=== PATIENT | male | born 1955 | race Caucasian/White ===

== ENCOUNTER 2016-09-01 01:13 | Inpatient (IN) | payer MEDICARE, OTHER ==
[~2016-09-01] VITALS: Ht 185.4 cm; Wt 79.8 kg
[2016-09-01 01:00] VITALS: BP 143/78
[~2016-09-01 01:13] MED LIST: ACET-868 PO; ALLA266C2 TP; AMLO10TA4 PO; BLOO-697 IN; GEMF600T3 PO; HYDR-3326 PO; INSU100V3 SQ; LAMO25TA5 PO; MAG30ORA PO; MAGN400O6 PO; SENN8.6T60 PO
[2016-09-01] MEDS ORDERED: ACETAMINOPHEN 325 MG TABLET PO PRN (01:30)
[2016-09-01] MEDS ORDERED: ZOLPIDEM TARTRATE 5 MG TABLET PO PRN (01:30)
[2016-09-01] MEDS ORDERED: MAGNESIUM HYDROXIDE 30 ML UDC PO PRN (01:30)
[2016-09-01] MEDS ORDERED: MAG HYDROX/AL HYDROX/SIMETH 30 ML UDC PO PRN (01:30)
[2016-09-01] MEDS ORDERED: LORAZEPAM 0.5 MG TABLET PO PRN (01:30)
[2016-09-01 07:46] LABS: CHOLESTEROL 143 mg/dL (<200); HDL CHOLESTEROL 29 mg/dL (40-60); LDL 76 mg/dL (0-99); TRIGLYCERIDES 272 mg/dL (30-150)
[2016-09-01] MEDS ORDERED: CARB1TAB21 PO (07:51)
[2016-09-01] MEDS ORDERED: LEVO50TA8 PO (07:51)
[2016-09-01] MEDS ORDERED: DIVA500T54 PO (07:51)
[2016-09-01 08:00] VITALS: BP 142/81
[2016-09-01] MEDS ORDERED: NIFE90TA37 PO (08:01)
[2016-09-01 12:41] LABS: ALBUMIN 3.2 g/dL (3.4-5.0); BILIRUBIN,TOTAL 0.2 mg/dL (0.2-1.0); CALCIUM, SERUM 9.4 mg/dL (8.5-10.1); CREATININE 1.3 mg/dL (0.6-1.3); POTASSIUM 3.8 mmol/L (3.5-5.1); TOTAL PROTEIN, SERUM 6.8 g/dL (6.4-8.2)
[2016-09-01 12:43] LABS: BASOPHILS # (AUTO) 0.1 /CMM (0.0-0.2); BASOPHILS % (AUTO) 0.7 % (0.0-2.0); DIFF TOTAL % 100 %; EOSINOPHILS # (AUTO) 0.1 /CMM (0.0-0.7); EOSINOPHILS % (AUTO) 1.2 % (0.0-6.0); HEMATOCRIT 38 % (39-51); HEMOGLOBIN 12.9 g/dL (13.5-17.5); LYMPHOCYTES # (AUTO) 2.1 /CMM (0.8-4.8); LYMPHOCYTES % (AUTO) 27.1 % (20.0-44.0); MEAN CORPUSCULAR HEMOGLOBIN 30 PG (26.0-33.0); MEAN CORPUSCULAR HGB CONC 34 g/dl (31.0-36.0); MEAN CORPUSCULAR VOLUME 87 fL (80-96); MONOCYTES # (AUTO) 0.7 /CMM (0.1-1.30); MONOCYTES % (AUTO) 8.8 % (2.0-12.0); NEUTROPHILS # (AUTO) 4.9 /CMM (1.8-8.9); NEUTROPHILS % (AUTO) 62.2 % (43.0-81.0); PLATELET COUNT (AUTO) 599 /CMM (150-450); RED BLOOD CELL COUNT(AUTO) 4.36 MIL/uL (4.5-6.0); WHITE BLOOD COUNT (AUTO) 7.9 K/uL (4.3-11.0)
[2016-09-01] MEDS: NIFEdipine XL (30MG) 30 MG TAB PO SCH (13:00)
[2016-09-01] MEDS: LEVOTHYROXINE SODIUM 50 MCG TABLET PO SCH (14:57)
[2016-09-01] MEDS: CARBIDOPA/LEVODOPA 25/100 MG 1 UDTAB PO SCH ×2 (14:57→17:23)
[2016-09-01 16:11] VITALS: BP 150/85
[2016-09-01 20:00] VITALS: BP 140/86
[2016-09-01] MEDS: LamoTRIgine 25 MG TABLET PO SCH (20:43)
[2016-09-01] MEDS: BENZTROPINE MESYLATE (1 MG) 1 MG TABLET PO SCH (20:44)
[2016-09-01] MEDS ORDERED: DIVALPROEX SODIUM 500 MG TABLET.DR PO SCH (22:00)
[2016-09-02 06:39] LABS: BASOPHILS % (AUTO) 0.4 % (0.0-2.0); DIFF TOTAL % 100 %; EOSINOPHILS # (AUTO) 0.1 /CMM (0.0-0.7); EOSINOPHILS % (AUTO) 0.8 % (0.0-6.0); HEMATOCRIT 38 % (39-51); HEMOGLOBIN 12.7 g/dL (13.5-17.5); LYMPHOCYTES # (AUTO) 2.3 /CMM (0.8-4.8); LYMPHOCYTES % (AUTO) 27.2 % (20.0-44.0); MEAN CORPUSCULAR HEMOGLOBIN 30 PG (26.0-33.0); MEAN CORPUSCULAR HGB CONC 34 g/dl (31.0-36.0); MEAN CORPUSCULAR VOLUME 89 fL (80-96); MONOCYTES # (AUTO) 0.5 /CMM (0.1-1.30); MONOCYTES % (AUTO) 5.6 % (2.0-12.0); NEUTROPHILS # (AUTO) 5.5 /CMM (1.8-8.9); PLATELET COUNT (AUTO) 611 /CMM (150-450); RED BLOOD CELL COUNT(AUTO) 4.28 MIL/uL (4.5-6.0); WHITE BLOOD COUNT (AUTO) 8.3 K/uL (4.3-11.0)
[2016-09-02 07:49] LABS: ALBUMIN 3.2 g/dL (3.4-5.0); BILIRUBIN,TOTAL 0.4 mg/dL (0.2-1.0); CALCIUM, SERUM 9.3 mg/dL (8.5-10.1); CREATININE 1.2 mg/dL (0.6-1.3); POTASSIUM 3.6 mmol/L (3.5-5.1); TOTAL PROTEIN, SERUM 6.5 g/dL (6.4-8.2)
[2016-09-02 08:05] VITALS: BP 163/92
[2016-09-02] MEDS: risperiDONE 1 MG TABLET PO SCH ×2 (09:00→17:00)
[2016-09-02] MEDS: LEVOTHYROXINE SODIUM 50 MCG TABLET PO SCH (10:26)
[2016-09-02] MEDS: CARBIDOPA/LEVODOPA 25/100 MG 1 UDTAB PO SCH ×3 (10:26→17:00)
[2016-09-02] MEDS: NIFEdipine XL (30MG) 30 MG TAB PO SCH (10:27)
[2016-09-02] MEDS: BENZTROPINE MESYLATE (1 MG) 1 MG TABLET PO SCH ×2 (10:27→17:00)
[2016-09-02] MEDS ORDERED: OLANZAPINE 10 MG VIAL IM ONE (13:00)
[2016-09-02 15:52] VITALS: BP 137/81
[2016-09-02] MEDS: LamoTRIgine 25 MG TABLET PO SCH (17:14)
[2016-09-02 19:52] VITALS: BP 126/76
[2016-09-02] MEDS: DIVALPROEX SODIUM 500 MG TABLET.DR PO SCH (21:00)
[2016-09-03 08:00] VITALS: BP 112/77
[2016-09-03] MEDS: LEVOTHYROXINE SODIUM 50 MCG TABLET PO SCH (09:37)
[2016-09-03] MEDS: risperiDONE 1 MG TABLET PO SCH ×2 (09:38→17:17)
[2016-09-03] MEDS: CARBIDOPA/LEVODOPA 25/100 MG 1 UDTAB PO SCH ×3 (09:38→17:16)
[2016-09-03] MEDS: DIVALPROEX SODIUM 500 MG TABLET.DR PO SCH ×2 (09:38→21:00)
[2016-09-03] MEDS: BENZTROPINE MESYLATE (1 MG) 1 MG TABLET PO SCH ×2 (09:38→17:16)
[2016-09-03] MEDS: NIFEdipine XL (30MG) 30 MG TAB PO SCH (09:39)
[2016-09-03 16:00] VITALS: BP 121/75
[2016-09-03] MEDS: LamoTRIgine 25 MG TABLET PO SCH (17:16)
[2016-09-03 20:00] VITALS: BP 118/60
[2016-09-04] MEDS: LEVOTHYROXINE SODIUM 50 MCG TABLET PO SCH (07:30)
[2016-09-04] MEDS: CARBIDOPA/LEVODOPA 25/100 MG 1 UDTAB PO SCH ×3 (09:00→17:00)
[2016-09-04] MEDS: DIVALPROEX SODIUM 500 MG TABLET.DR PO SCH ×2 (09:00→21:00)
[2016-09-04] MEDS: NIFEdipine XL (30MG) 30 MG TAB PO SCH (09:00)
[2016-09-04] MEDS: BENZTROPINE MESYLATE (1 MG) 1 MG TABLET PO SCH ×2 (09:00→17:00)
[2016-09-04] MEDS: risperiDONE 1 MG TABLET PO SCH ×2 (09:00→17:00)
[2016-09-04] MEDS: FLUOXETINE HCL 20 MG CAPSULE PO SCH (12:17)
[2016-09-04] MEDS ORDERED: LORAZEPAM INJ 2 MG/ML VIAL IM STA (14:22)
[2016-09-04] MEDS ORDERED: OLANZAPINE 10 MG VIAL IM ONE (14:30)
[2016-09-04] MEDS: LamoTRIgine 25 MG TABLET PO SCH (18:00)
[2016-09-05] MEDS: LEVOTHYROXINE SODIUM 50 MCG TABLET PO SCH (07:30)
[2016-09-05 08:00] VITALS: BP 147/86
[2016-09-05] MEDS: CARBIDOPA/LEVODOPA 25/100 MG 1 UDTAB PO SCH ×3 (09:39→18:03)
[2016-09-05] MEDS: DIVALPROEX SODIUM 500 MG TABLET.DR PO SCH ×2 (09:40→20:58)
[2016-09-05] MEDS: FLUOXETINE HCL 20 MG CAPSULE PO SCH (09:40)
[2016-09-05] MEDS: BENZTROPINE MESYLATE (1 MG) 1 MG TABLET PO SCH ×2 (09:40→18:03)
[2016-09-05] MEDS: risperiDONE 1 MG TABLET PO SCH ×2 (09:41→18:03)
[2016-09-05] MEDS: NIFEdipine XL (30MG) 30 MG TAB PO SCH (09:41)
[2016-09-05 16:00] VITALS: BP 149/80
[2016-09-05] MEDS: LamoTRIgine 25 MG TABLET PO SCH (18:06)
[2016-09-05 20:00] VITALS: BP 138/67
[2016-09-06 08:00] VITALS: BP 122/71
[2016-09-06] MEDS: risperiDONE 1 MG TABLET PO SCH ×2 (08:54→16:50)
[2016-09-06] MEDS: FLUOXETINE HCL 20 MG CAPSULE PO SCH (08:54)
[2016-09-06] MEDS: LEVOTHYROXINE SODIUM 50 MCG TABLET PO SCH (08:54)
[2016-09-06] MEDS: CARBIDOPA/LEVODOPA 25/100 MG 1 UDTAB PO SCH ×3 (08:54→16:49)
[2016-09-06] MEDS: BENZTROPINE MESYLATE (1 MG) 1 MG TABLET PO SCH ×2 (08:55→16:49)
[2016-09-06] MEDS: DIVALPROEX SODIUM 500 MG TABLET.DR PO SCH ×2 (08:55→23:05)
[2016-09-06] MEDS: NIFEdipine XL (30MG) 30 MG TAB PO SCH (08:56)
[2016-09-06 16:00] VITALS: BP 134/68
[2016-09-06] MEDS: LamoTRIgine 25 MG TABLET PO SCH (17:25)
[2016-09-06 20:00] VITALS: BP 103/62
[2016-09-06] MEDS: ZOLPIDEM TARTRATE 5 MG TABLET PO PRN (23:06)
[2016-09-07 08:41] VITALS: BP 140/69
[2016-09-07] MEDS: risperiDONE 1 MG TABLET PO SCH ×2 (08:52→17:25)
[2016-09-07] MEDS: DIVALPROEX SODIUM 500 MG TABLET.DR PO SCH ×2 (08:53→20:56)
[2016-09-07] MEDS: LEVOTHYROXINE SODIUM 50 MCG TABLET PO SCH (08:53)
[2016-09-07] MEDS: FLUOXETINE HCL 20 MG CAPSULE PO SCH (08:53)
[2016-09-07] MEDS: NIFEdipine XL (30MG) 30 MG TAB PO SCH (08:53)
[2016-09-07] MEDS: BENZTROPINE MESYLATE (1 MG) 1 MG TABLET PO SCH ×2 (08:53→17:26)
[2016-09-07] MEDS: CARBIDOPA/LEVODOPA 25/100 MG 1 UDTAB PO SCH ×3 (08:53→17:25)
[2016-09-07 16:00] VITALS: BP 127/67
[2016-09-07] MEDS: LamoTRIgine 25 MG TABLET PO SCH (17:27)
[2016-09-07 20:00] VITALS: BP 135/76
[2016-09-08] MEDS: LEVOTHYROXINE SODIUM 50 MCG TABLET PO SCH (07:30)
[2016-09-08 08:00] VITALS: BP 148/74
[2016-09-08] MEDS: NIFEdipine XL (30MG) 30 MG TAB PO SCH (09:00)
[2016-09-08] MEDS: BENZTROPINE MESYLATE (1 MG) 1 MG TABLET PO SCH ×2 (09:00→17:00)
[2016-09-08] MEDS: risperiDONE 1 MG TABLET PO SCH ×2 (09:00→17:00)
[2016-09-08] MEDS: CARBIDOPA/LEVODOPA 25/100 MG 1 UDTAB PO SCH ×3 (09:00→17:00)
[2016-09-08] MEDS: FLUOXETINE HCL 20 MG CAPSULE PO SCH (09:00)
[2016-09-08] MEDS: DIVALPROEX SODIUM 500 MG TABLET.DR PO SCH ×2 (10:10→20:22)
[2016-09-08 16:00] VITALS: BP 138/63
[2016-09-08] MEDS: LamoTRIgine 25 MG TABLET PO SCH (17:51)
[2016-09-08 20:00] VITALS: BP 141/71
[2016-09-09 08:46] VITALS: BP 128/79
[2016-09-09] MEDS: risperiDONE 1 MG TABLET PO SCH ×3 (08:54→17:00)
[2016-09-09] MEDS: CARBIDOPA/LEVODOPA 25/100 MG 1 UDTAB PO SCH ×4 (08:54→17:00)
[2016-09-09] MEDS: BENZTROPINE MESYLATE (1 MG) 1 MG TABLET PO SCH ×3 (08:55→17:00)
[2016-09-09] MEDS: LEVOTHYROXINE SODIUM 50 MCG TABLET PO SCH (08:55)
[2016-09-09] MEDS: DIVALPROEX SODIUM 500 MG TABLET.DR PO SCH ×2 (08:55→21:20)
[2016-09-09] MEDS: NIFEdipine XL (30MG) 30 MG TAB PO SCH ×2 (08:55→09:00)
[2016-09-09] MEDS: FLUOXETINE HCL 20 MG CAPSULE PO SCH ×2 (08:55→09:00)
[2016-09-09 16:47] VITALS: BP 130/80
[2016-09-09] MEDS: LamoTRIgine 25 MG TABLET PO SCH (17:37)
[2016-09-09 19:35] VITALS: BP 169/87
[2016-09-09] MEDS: ZOLPIDEM TARTRATE 5 MG TABLET PO PRN (21:20)
[2016-09-10 08:00] VITALS: BP 126/88
[2016-09-10] MEDS: NIFEdipine XL (30MG) 30 MG TAB PO SCH (08:08)
[2016-09-10] MEDS: LEVOTHYROXINE SODIUM 50 MCG TABLET PO SCH (08:08)
[2016-09-10] MEDS: BENZTROPINE MESYLATE (1 MG) 1 MG TABLET PO SCH ×2 (08:08→17:42)
[2016-09-10] MEDS: CARBIDOPA/LEVODOPA 25/100 MG 1 UDTAB PO SCH ×3 (08:09→17:42)
[2016-09-10] MEDS: DIVALPROEX SODIUM 500 MG TABLET.DR PO SCH ×2 (08:09→22:25)
[2016-09-10] MEDS: risperiDONE 1 MG TABLET PO SCH ×2 (08:09→17:42)
[2016-09-10] MEDS: FLUOXETINE HCL 20 MG CAPSULE PO SCH (08:13)
[2016-09-10 16:10] VITALS: BP 154/92
[2016-09-10 20:00] VITALS: BP 124/72
[2016-09-10] MEDS: ZOLPIDEM TARTRATE 5 MG TABLET PO PRN (22:25)
[2016-09-11] MEDS: FLUOXETINE HCL 20 MG CAPSULE PO SCH (08:18)
[2016-09-11] MEDS: risperiDONE 1 MG TABLET PO SCH ×2 (08:18→17:50)
[2016-09-11] MEDS: DIVALPROEX SODIUM 500 MG TABLET.DR PO SCH (08:20)
[2016-09-11] MEDS: BENZTROPINE MESYLATE (1 MG) 1 MG TABLET PO SCH ×2 (08:20→17:50)
[2016-09-11] MEDS: NIFEdipine XL (30MG) 30 MG TAB PO SCH (08:20)
[2016-09-11] MEDS: CARBIDOPA/LEVODOPA 25/100 MG 1 UDTAB PO SCH ×3 (08:20→17:50)
[2016-09-11] MEDS: LEVOTHYROXINE SODIUM 50 MCG TABLET PO SCH (08:20)
[2016-09-11 20:06] VITALS: BP 100/59
[2016-09-11] MEDS: DIVALPROEX SODIUM 250 MG TABLET.DR PO SCH (21:47)
[2016-09-11] MEDS: ZOLPIDEM TARTRATE 5 MG TABLET PO PRN (21:52)
[2016-09-12] MEDS: LEVOTHYROXINE SODIUM 50 MCG TABLET PO SCH (07:30)
[2016-09-12 08:00] VITALS: BP 113/61
[2016-09-12] MEDS: CARBIDOPA/LEVODOPA 25/100 MG 1 UDTAB PO SCH ×3 (08:31→16:20)
[2016-09-12] MEDS: FLUOXETINE HCL 20 MG CAPSULE PO SCH (08:33)
[2016-09-12] MEDS: BENZTROPINE MESYLATE (1 MG) 1 MG TABLET PO SCH ×2 (08:33→16:19)
[2016-09-12] MEDS: DIVALPROEX SODIUM 500 MG TABLET.DR PO SCH (08:34)
[2016-09-12] MEDS: risperiDONE 1 MG TABLET PO SCH ×2 (08:34→16:20)
[2016-09-12] MEDS: NIFEdipine XL (30MG) 30 MG TAB PO SCH (08:59)
[2016-09-12 19:56] VITALS: BP 137/86
[2016-09-12] MEDS: DIVALPROEX SODIUM 250 MG TABLET.DR PO SCH (21:24)
[2016-09-12] MEDS: ZOLPIDEM TARTRATE 5 MG TABLET PO PRN (23:40)
[2016-09-13] MEDS: DIVALPROEX SODIUM 500 MG TABLET.DR PO SCH (08:52)
[2016-09-13] MEDS: CARBIDOPA/LEVODOPA 25/100 MG 1 UDTAB PO SCH ×3 (08:53→17:22)
[2016-09-13] MEDS: risperiDONE 1 MG TABLET PO SCH ×2 (08:53→17:22)
[2016-09-13] MEDS: FLUOXETINE HCL 20 MG CAPSULE PO SCH (08:53)
[2016-09-13] MEDS: NIFEdipine XL (30MG) 30 MG TAB PO SCH (08:53)
[2016-09-13] MEDS: BENZTROPINE MESYLATE (1 MG) 1 MG TABLET PO SCH ×2 (08:53→17:22)
[2016-09-13] MEDS: LEVOTHYROXINE SODIUM 50 MCG TABLET PO SCH (08:53)
[2016-09-13 08:54] VITALS: BP 140/77
[2016-09-13 16:00] VITALS: BP 141/73
[2016-09-13 20:00] VITALS: BP 124/74
[2016-09-13] MEDS: DIVALPROEX SODIUM 250 MG TABLET.DR PO SCH (21:00)
[2016-09-14 08:00] VITALS: BP 150/67
[2016-09-14] MEDS: DIVALPROEX SODIUM 500 MG TABLET.DR PO SCH (08:14)
[2016-09-14] MEDS: CARBIDOPA/LEVODOPA 25/100 MG 1 UDTAB PO SCH ×2 (08:14→13:44)
[2016-09-14] MEDS: LEVOTHYROXINE SODIUM 50 MCG TABLET PO SCH (08:14)
[2016-09-14] MEDS: BENZTROPINE MESYLATE (1 MG) 1 MG TABLET PO SCH (08:14)
[2016-09-14] MEDS: NIFEdipine XL (30MG) 30 MG TAB PO SCH (08:15)
[2016-09-14] MEDS: risperiDONE 1 MG TABLET PO SCH (08:15)
[2016-09-14] MEDS ORDERED: FLUOXETINE HCL 20 MG CAPSULE PO SCH (09:00)
[2016-09-14 16:00] VITALS: BP 138/74
== END 2016-09-14 15:40 | DRG 885 ==
LOC: GPS 01:13
PROVIDERS: ADMIT Psychiatry & Neurology Psychosomatic Medicine; ATTEND Internal Medicine
DX: F31.60 Bipolar disorder, current episode mixed, unspecified (principal); F25.0 Schizoaffective disorder, bipolar type; G20 Parkinson's disease; E78.5 Hyperlipidemia, unspecified; E03.9 Hypothyroidism, unspecified; E11.9 Type 2 diabetes mellitus without complications; I10 Essential (primary) hypertension; H40.9 Unspecified glaucoma; M54.5 Low back pain; G89.29 Other chronic pain; F29 Unspecified psychosis not due to a substance or known physiological condition; Z91.14 Patient's other noncompliance with medication regimen; Z91.5 Personal history of self-harm
CPT/HCPCS: 36415; 80053-TC; 80061-TC; 80164-TC; 85025-TC; 87081-TC; 97001-TC; 97530-TC; J2060; J3490